=== PATIENT | female | born 1990 | race Hispanic/Latino ===

== ENCOUNTER 2017-11-12 10:28 | Emergency (ER) | payer SELFPAY ==
[2017-11-12] MEDS ORDERED: NACL 0.9% 1000 ML 1,000 ML IV ONE ×2 (11:51→13:43)
[2017-11-12] MEDS ORDERED: ZOFRAN IV ONE (11:51)
--- NOTE | 2017-11-12 11:51 | Emergency Department Report ---
ED Abdominal Pain HPI - General Chief Complaint: Urogenital-Female Stated Complaint: BACK PAIN Time Seen by Provider: 11/12/17 11:36 Source: patient Mode of arrival: Ambulatory Limitations: No Limitations - History of Present Illness Initial Comments: Patient is a 27-year-old female that presents emergency room with complaints of left flank pain, fever, nausea and vomiting 4 days. She states all her symptoms started 4 days ago. Patient states she has not been able to hold any food or liquids down for the past 4 days until this morning where she was able to drink a little bit of water. Patient states that her flank pain is a 10 out of 10 and is worse with movement and palpation. Patient states the pain is better with rest. Patient states the fever is better only with ibuprofen. Patient denies diarrhea. Patient denies chest pain or shortness of breath. Patient does complain of chills at times. Patient states that her fever got up to 103. Patient has a past medical history of gastric cancer diagnosed 8 years ago and has been in remission and stent. LMP 2 weeks ago. MD Complaint: flank pain -: Sudden Location: L flank Radiation: none Migration to: no migration Severity: severe Severity scale (0 -10): 10 Quality: stabbing Consistency: constant Improves With: rest Worsens With: movement Associated Symptoms: denies other symptoms, nausea, vomiting, fever, chills. denies: diarrhea, constipation, dysuria, hematemesis, hematochezia, melena, hematuria, anorexia, syncope - Related Data LMP (females 10-50): other (2 weeks ago) Allergies Allergy/AdvReac Type Severity Reaction Status Date / Time peanut Allergy Hives Verified 11/12/17 11:01 ED Review of Systems ROS: Stated complaint: BACK PAIN Other details as noted in HPI Comment: All other systems reviewed and negative Constitutional: chills, fever Eyes: denies: eye pain, eye discharge, vision change ENT: denies: ear pain, throat pain Respiratory: denies: cough, shortness of breath, wheezing Cardiovascular: denies: chest pain, palpitations Endocrine: no symptoms reported Gastrointestinal: denies: abdominal pain, nausea, diarrhea Genitourinary: denies: urgency, dysuria, discharge Musculoskeletal: denies: back pain, joint swelling, arthralgia Skin: denies: rash, lesions Neurological: denies: headache, weakness, paresthesias Psychiatric: denies: anxiety, depression Hematological/Lymphatic: denies: easy bleeding, easy bruising ED Past Medical Hx - Past Medical History Previous Medical History?: Yes Hx Kidney Stones: Yes Additional medical history: stomach cancer (2008) - Surgical History Past Surgical History?: Yes Additional Surgical History: unsure what was done with the cancer, had a procedure then chemo and radiation - Family History Family history: hypertension - Social History Smoking Status: Never Smoker Substance Use Type: None ED Physical Exam - General Limitations: No Limitations General appearance: alert, in no apparent distress - Head Head exam: Present: atraumatic, normocephalic - Eye Eye exam: Present: normal appearance - ENT ENT exam: Present: mucous membranes moist - Neck Neck exam: Present: normal inspection - Respiratory Respiratory exam: Present: normal lung sounds bilaterally. Absent: respiratory distress - Cardiovascular Cardiovascular Exam: Present: regular rate, normal rhythm. Absent: systolic murmur, diastolic murmur, rubs, gallop - GI/Abdominal GI/Abdominal exam: Present: soft, normal bowel sounds - Extremities Exam Extremities exam: Present: normal inspection - Back Exam Back exam: Present: normal inspection, CVA tenderness (L) - Neurological Exam Neurological exam: Present: alert, oriented X3 - Psychiatric Psychiatric exam: Present: normal affect, normal mood - Skin Skin exam: Present: warm, dry, intact, normal color. Absent: rash ED Course Vital Signs 11/12/17 10:47 Temperature 99.1 F Pulse Rate 110 H Respiratory 18 Rate Blood Pressure 136/95 O2 Sat by Pulse 98 Oximetry - Reevaluation(s) Reevaluation #1: Discussed all results with patient. Patient agreeable with plan of care. Will admit patient for further evaluation and treatment. 11/12/17 13:28 Reevaluation #2: Hospitalist consulted for admission. 11/12/17 13:43 ED Medical Decision Making - Lab Data Result diagrams: 11/12/17 11:14 11/12/17 11:14 - EKG Data -: EKG Interpreted by Me EKG shows normal: sinus rhythm, axis, intervals, QRS complexes, ST-T waves Rate: normal - EKG Data Interpretation: no acute changes - Radiology Data Radiology results: report reviewed Left pyelonephritis - Medical Decision Making 27-year-old female presented for abdominal pain found to have left pyelonephritis. Will admit patient for IV antibiotics and fluids and further treatment and evaluation. - Differential Diagnosis GI. Kidney stone. Abdominal pain. Pyelonephritis. Critical care attestation.: If time is entered above; I have spent that time in minutes in the direct care of this critically ill patient, excluding procedure time. ED Disposition Clinical Impression: Pyelonephritis, Abdominal pain, Intractable nausea and vomiting Disposition: OP ADMIT IP TO THIS HOSP Is pt being admited?: Yes Does the pt Need Aspirin: No Condition: Serious Referrals: PRIMARY CARE, [Primary Care Provider] - 3-5 Days Time of Disposition: 13:44
[2017-11-12 11:57] LABS: Alanine Aminotransferase 11 units/L (7-56); Albumin 4.3 g/dL (3.9-5); BUN/Creatinine Ratio 11; Blood Urea Nitrogen 8 mg/dL (7-17); Calcium 9.4 mg/dL (8.4-10.2); Hemolysis Index 8
[2017-11-12] MEDS ORDERED: NACL ONE (12:05)
[2017-11-12 12:17] LABS: Basophils % (Auto) 0.2 % (0.0-1.8); Eosinophils % (Auto) 0.1 % (0.0-4.3); Hematocrit 42.5 % (30.3-42.9); Lymphocytes # (Auto) 1.1 K/mm3 (1.2-5.4); Mean Corpuscular HGB Conc 33 % (30-34); Mean Corpuscular Hemoglobin 30 pg (28-32); Mean Corpuscular Volume 92 fl (79-97); Monocytes # (Auto) 1.7 K/mm3 (0.0-0.8); Monocytes % (Auto) 12.2 % (0.0-7.3); Platelet Count 233 K/mm3 (140-440); Red Blood Count 4.62 M/mm3 (3.65-5.03); Red Cell Distribution Width 12.1 % (13.2-15.2)
[2017-11-12 12:26] LABS: INR 1.04 (0.87-1.13)
--- NOTE | 2017-11-12 13:03 | Cat Scan Report ---
CT ABDOMEN PELVIS WITH AND WITHOUT CONTRAST: HISTORY: abdominal pain. COMPARISON: none. TECHNIQUE: Helical CT in 1.25mm intervals before and after IV contrast. Sagittal and coronal reconstructions. FINDINGS: Lung bases: Normal. Liver: Normal. Biliary system: Normal. Pancreas: Normal. Spleen: Normal. Kidneys/ureters/bladder: There are multiple small perfusion defects in the left kidney consistent with acute left pyelonephritis. There is no evidence for obstruction, calculus or perinephric fluid. The ureters are normal course and caliber. The bladder is unremarkable. Adrenal glands: Normal. Aorta: Normal. Intestines: Unremarkable given no oral contrast was administered. Appendix: Normal. Pelvic viscera: Normal. An IUD is in place Ascites: None. Adenopathy: None. Musculoskeletal: Normal. IMPRESSION: Left pyelonephritis.
[2017-11-12 13:08] LABS: Bacteria,Urine 1+ /HPF (Negative); Bilirubin,Urine NEG (Negative); Blood,Urine NEG (Negative); Color,Urine Yellow (Yellow); Mucus,Urine 3+ /HPF; Urobilinogen,Urine < 2.0 mg/dL (<2.0)
[2017-11-12] MEDS ORDERED: LEVAQUIN 750MG/150ML 750 MG/150 ML BAG IV ONE (13:41)
--- NOTE | 2017-11-12 13:42 | History and Physical Report ---
History of Present Illness Chief complaint: My back hurts History of present illness: 27 YO Female with Nephrolithiasis, Stomach cancer S/P chemo/radiation not currently undergoing therapy presents to ED for evaluation. Pt states that she has experienced left flank pain, fever, nausea and vomiting for the past 4 days. Pt seen and evaluated and found to have UTI. Pt treated with IV antibiotics, as well as IVF resuscitation with improvement in symptoms. Pt medically optimized and back to usual state of health. Pt tolerating oral diet. Pt discharged home with oral antibiotics. Pt instructed to f/u pcp within 1 wk for F/U care. Pt to f/u with urology for further care and evaluation of possible VUR due to recurrent UTI. Past History Past Medical History: cancer, other (Nephrolithiasis) Past Surgical History: No surgical history, Other (UTO, Pt not sure and cannot provide details. ) Social history: single Family history: no significant family history (reviewed), other (reviewed) Medications and Allergies Allergies Allergy/AdvReac Type Severity Reaction Status Date / Time peanut Allergy Hives Verified 11/12/17 11:01 Home Medications Medication Instructions Recorded Confirmed Last Taken Type Ciprofloxacin HCl [Ciprofloxacin 500 mg PO Q12HR #20 tab 11/12/17 Unknown Rx TAB] Fluconazole [Diflucan TAB] 150 mg PO ONCE #2 tablet 11/12/17 Unknown Rx Active Meds: Active Medications Levofloxacin/Dextrose (Levaquin 750mg/150ml) 750 mg in 150 mls @ 100 mls/hr IV ONCE ONE Stop: 11/12/17 15:10 Vancomycin HCl (Vancomycin/Ns 1 Gm/250 Ml) 1 gm in 250 mls @ 167.007 mls/hr IV ONCE ANGELY; Protocol Vancomycin HCl (Vancomycin Pharmacy To Dose) 1 each IV PKCONSULT ANGELY Review of Systems Constitutional: no weight loss, no weight gain, no fever, no chills Ears, nose, mouth and throat: no ear pain, no ear discharge, no tinnitis, no decreased hearing, no nose pain, no nasal congestion, no nasal discharge, no sinus pressure Breasts: no change in shape, no mass Cardiovascular: no chest pain, no orthopnea, no palpitations, no rapid/ irregular heart beat, no edema, no syncope Respiratory: no cough, no cough with sputum, no excessive sputum, no hemoptysis , no shortness of breath Gastrointestinal: no nausea, no vomiting, no diarrhea, no constipation, no change in bowel habits, no hematemesis, no BRBPR, no melena, no hematochezia, no loss of appetite, no early satiety Genitourinary Female: flank pain, no pelvic pain, no menorrhagia, no dysuria, no urinary frequency, no urgency, no stress incontinence, no mixed incontinence , no nocturia, no vaginal itching, no vaginal discharge, no vaginal odor, no genital sores Rectal: no pain, no incontinence, no bleeding Musculoskeletal: no neck stiffness, no neck pain, no shooting arm pain, no arm numbness/tingling, no low back pain, no shooting leg pain, no leg numbness/ tingling Integumentary: no rash, no pruritis, no redness, no sores, no wounds, no jaundice Neurological: no head injury, no transient paralysis, no paralysis, no weakness , no parathesias, no numbness, no tingling, no seizures, no syncope Psychiatric: no anxiety, no memory loss, no change in sleep habits, no sleep disturbances, no hypersomnia, no change in appetite, no change in libido, no suicidal ideation Endocrine: no cold intolerance, no heat intolerance, no polyphagia, no excessive thirst, no polydipsia, no polyuria, no nocturia Hematologic/Lymphatic: no easy bruising, no easy bleeding, no lymphadenopathy, no lymphedema Allergic/Immunologic: no urticaria, no persistent infections, no anaphylaxis, no angioedema Exam - Constitutional Vitals: Temp Pulse Resp BP Pulse Ox 99.1 F 110 H 18 136/95 98 11/12/17 10:47 11/12/17 10:47 11/12/17 10:47 11/12/17 10:47 11/12/17 10:47 General appearance: Present: no acute distress, well-nourished - EENT Eyes: Present: PERRL ENT: hearing intact, clear oral mucosa - Neck Neck: Present: supple, normal ROM - Respiratory Respiratory effort: normal Respiratory: bilateral: CTA - Cardiovascular Heart Sounds: Present: S1 & S2. Absent: rub, click - Extremities Extremities: pulses symmetrical, No edema Peripheral Pulses: within normal limits - Abdominal General gastrointestinal: Present: soft, non-tender, non-distended, normal bowel sounds Female genitourinary: Present: normal - Integumentary Integumentary: Present: clear, warm, dry - Musculoskeletal Musculoskeletal: gait normal, strength equal bilaterally - Psychiatric Psychiatric: appropriate mood/affect, intact judgment & insight - Neurologic Neurologic: CNII-XII intact, moves all extremities Results - Labs CBC & Chem 7: 11/12/17 11:14 11/12/17 11:14 Labs: Abnormal lab results 11/12/17 11/12/17 11/12/17 Range/Units 11:14 11:14 11:45 WBC 14.1 H (4.5-11.0) K/mm3 RDW 12.1 L (13.2-15.2) % Lymph % (Auto) 8.0 L (13.4-35.0) % Tate % (Auto) 12.2 H (0.0-7.3) % Lymph # 1.1 L (1.2-5.4) K/mm3 Tate # 1.7 H (0.0-0.8) K/mm3 Seg Neutrophils % 79.5 H (40.0-70.0) % Seg Neutrophils # 11.2 H (1.8-7.7) K/mm3 Sodium 136 L (137-145) mmol/L Chloride 93.6 L (98-107) mmol/L Glucose 103 H (65-100) mg/dL Urine WBC (Auto) 37.0 H (0.0-6.0) /HPF Assessment and Plan - Patient Problems (1) UTI (urinary tract infection) Status: Acute Qualifiers: Urinary tract infection type: acute cystitis Plan to address problem: Iv antibiotics in ED. Pt discharged home with oral antibiotics, as well as antiemetic therapy. Pt instructed to f/u pcp 4 days, and f/u with urology within 1 wk for evaluation of possible vesical ureteral reflux resulting in recurrent uti.
[2017-11-12] MEDS ORDERED: VANCOMYCIN PHARMACY TO DOSE IV SCH (14:00)
[2017-11-12] MEDS ORDERED: VANCOMYCIN/NS 1 GM/250 ML 1 GM/250 ML BAG IV SCH (14:00)
[2017-11-12 14:34] LABS: Amphetamine Screen,Urine PRESUMPTIVE NEGATIVE; Benzodiazepines Screen,Urine PRESUMPTIVE NEGATIVE; Cocaine Screen,Urine PRESUMPTIVE NEGATIVE; Methadone Screen,Urine PRESUMPTIVE NEGATIVE; Opiate Screen,Urine PRESUMPTIVE NEGATIVE
[2017-11-12 14:55] LABS: Cannabinoid Screen,Urine PRESUMPTIVE POSITIVE
[2017-11-12] MEDS ORDERED: VANCOMYCIN/0.45 NS 1 GM/250 ML 1 GM/250 ML BAG IV SCH (15:00)
[2017-11-12 18:54] VITALS: BP 124/76
== END 2017-11-12 20:30 | disposition admitted as inpatient to this hospital (09) ==
LOC: ED 10:28
DX: N12 Tubulo-interstitial nephritis, not specified as acute or chronic (principal); R11.2 Nausea with vomiting, unspecified; R10.9 Unspecified abdominal pain
CPT/HCPCS: 36415; 74178; 80053; 80307; 81001; 82140; 82805; 85025; 85610; 87040; 87086; 93005; 93010; 96365; 96367; 96375; 99284; J1956; J2405; J3370; J7030; Q9967; 87076; 87186